=== PATIENT | male | born 1965 | race Caucasian/White ===

== ENCOUNTER 2019-03-04 21:11 | Emergency (ER) | payer MEDICAID ==
[~2019-03-04] VITALS: Ht 172.7 cm; Wt 74.8 kg
[2019-03-04 21:11] VITALS: BP 137/73
--- NOTE | 2019-03-04 21:11 | NUR ---
pt ambulated from [facility] to bed 9.
--- NOTE | 2019-03-04 21:15 | NUR ---
54 Y/O [place] PRESENTS TO ED WITH NECK PAIN X3 MONTHS. PT STATES PAIN IS 10/10; DOES NOT RADIATE. NO SOB/DIFFICULTY BREATHING NOTED. PT HAS GOOD ROM ON NECK. PT DENIES ANY TRAUMA. NO TINGLING SENSATION ONE EXTREMITIES. PT VSS. ERMD AWARE. WILL CONTINUE TO MONITOR.
--- NOTE | 2019-03-04 21:24 | NUR ---
PT UNABLE TO PROVIDE URINE AT THIS TIME
--- NOTE | 2019-03-04 21:56 | NUR ---
PT TAKEN TO XRAY VIA WHEELCHAIR
[2019-03-04 22:03] LABS: BASOPHILS % (AUTO) 0.4 % (0.0-2.0); EOSINOPHILS # (AUTO) 0.2 K/uL (0-0.4); EOSINOPHILS % (AUTO) 2.2 % (0.0-4.0); HEMATOCRIT 42.1 % (36-52); HEMOGLOBIN 13.6 g/dL (12.0-18.0); LYMPHOCYTES # (AUTO) 2.4 K/uL (2.0-11.5); LYMPHOCYTES % (AUTO) 23.9 % (20.5-51.1); MEAN CORPUSCULAR HEMOGLOBIN 26 pg (27-31); MEAN CORPUSCULAR HGB CONC 32 g/dL (33-37); MEAN CORPUSCULAR VOLUME 80.9 fL (80-94); MONOCYTES # (AUTO) 0.4 K/uL (0.8-1.0); MONOCYTES % (AUTO) 4.1 % (1.7-9.3); NEUTROPHILS # (AUTO) 7.1 K/uL (1.8-7.7); NEUTROPHILS % (AUTO) 69.4 % (42.2-75.2); PLATELET COUNT (AUTO) 293 K/uL (140-450); RED CELL DISTRIBUTION WIDTH 17.3 % (11.6-13.7); WHITE BLOOD COUNT (AUTO) 10.2 K/uL (4.8-10.8)
[2019-03-04] MEDS: IBUPROFEN 800 MG TAB PO ONE (22:22)
[2019-03-04 22:26] LABS: ANION GAP 10.3 (8-16); CARBON DIOXIDE 29.5 mmol/L (21-32); CHLORIDE 105 mmol/L (98-107); CREATININE 0.7 mg/dL (0.7-1.3); GFR ARICAN-AMERICAN 150 mL/min (>90); GLUCOSE 113 mg/dL (74-106); POTASSIUM 3.8 mmol/L (3.5-5.1); SODIUM SERUM 141 mmol/L (136-145); UREA NITROGEN, BLOOD 6 mg/dL (7-18)
[2019-03-04 22:39] LABS: ALBUMIN 3.6 g/dL (3.4-5.0); ASPARTATE AMINOTRANSFERASE 16 U/L (15-37); SALICYLATE 4.2 mg/dL (2.8-20.0); TOTAL BILIRUBIN 0.2 mg/dL (0.0-1.0)
[2019-03-04 22:45] LABS: ACETAMINOPHEN < 0.5 ug/ml (10-30)
[2019-03-04 23:11] VITALS: BP 137/73
--- NOTE | 2019-03-04 23:11 | NUR ---
PT DISCHARGED WITH PAPERWORK. EDUCATED PT REGARDING MEDICATIONS AND D/C INSTRUCTIONS. PT VERBALIZED UNDERSTANDING OF TEACHING. TOLD PT TO FOLLOW UP WITH PCP AND WHEN TO RETURN TO ED. PT AT STABLE CONDITION. ALL QUESTIONS ANSWERED.
== END 2019-03-04 23:11 | disposition home or self-care (01) ==
LOC: MED 21:11
DX: M54.2 Cervicalgia (principal); G89.29 Other chronic pain; F32.9 Major depressive disorder, single episode, unspecified; F20.9 Schizophrenia, unspecified; Z98.890 Other specified postprocedural states; Z88.8 Allergy status to other drugs, medicaments and biological substances
CPT/HCPCS: 36415; 72040; 80053; 85025; 87081; 99284; G0480; G0482